=== PATIENT | male | born 1955 | race Caucasian/White ===

== ENCOUNTER 2023-05-27 15:39 | Emergency (ER) | payer BC ==
[2023-05-27 15:51] VITALS: BP 161/89; PULSE 67; RESP 18; TEMP 97.8; BMI 29.5
[2023-05-27] MEDS ORDERED: IBUPROFEN 400 MG TABLET (FP) PO ONE (15:57)
[2023-05-27] MEDS: IBUPROFEN 400 MG TABLET (FP) PO ONE (16:00)
== END 2023-05-27 17:23 | disposition home or self-care (01) ==
LOC: FER 15:39
PROC: 2W3QX1Z Immobilization of Right Lower Leg using Splint (ICD-10-PCS; principal; 2023-05-27)
DX: M25.571 Pain in right ankle and joints of right foot (principal); S82.831A Other fracture of upper and lower end of right fibula, initial encounter for closed fracture; X50.1XXA Overexertion from prolonged static or awkward postures, initial encounter
CPT/HCPCS: 73590-TC-RT-FY; 73610-TC-RT-FY; 73630-TC-RT-FY; 99283-25